=== PATIENT | male | born 1960 | race Caucasian/White ===

== ENCOUNTER 2017-01-18 05:49 | Day surgery (SDC) | payer BC ==
[2017-01-18] MEDS ORDERED: DIPRIVAN 200 MG/20 ML IV ONE (05:50)
[2017-01-18] MEDS ORDERED: Ketamine HCl 50 MG/ML IJ ONE (05:50)
[2017-01-18] MEDS ORDERED: Lactated Ringers 1,000 ML IV SCH (06:00)
[2017-01-18] MEDS ORDERED: Lactated Ringers 1,000 ML IV ONE ×2 (06:20→07:50)
[2017-01-18 08:50] VITALS: O2SAT 97
--- NOTE | 2017-01-18 10:13 | OP ---
SURGERY DATE/TIME: 01/18/2017719 PREOPERATIVE DIAGNOSIS: Screening colonoscopy. POSTOPERATIVE DIAGNOSIS: Diverticulosis. PROCEDURE: Screening colonoscopy. SURGEON: Thanh Abdi M.D. ANESTHESIA: MAC by Niraj Augustin CRNA. ESTIMATED BLOOD LOSS: None. SPECIMENS: None. DESCRIPTION OF PROCEDURE: After informed written consent was obtained, the patient was taken to the endoscopy suite. He underwent monitored anesthesia and a digital rectal exam showed normal sphincter tone and no internal lesions. The scope was inserted into the rectum and sequentially the entire colonic mucosa was traversed. The level of cecum was reached and verified with direct visualization of ileocecal valve. Upon withdrawal careful mucosal inspection revealed no obvious abnormalities other than diverticulosis scattered throughout the length of the colon. There was some semi-solid stool present throughout several areas but there were no gross mucosal abnormalities. Prior to withdrawal retroflexion showed no internal lesions. The scope was removed and the patient was transferred to the recovery room in excellent condition.
[2017-01-18 11:37] VITALS: BP 151/95; PULSE 61
== END 2017-01-18 09:20 | disposition home or self-care (01) ==
LOC: SDC 05:49
PROVIDERS: ATTEND Family Medicine
PROC: 0DJD8ZZ Inspection of Lower Intestinal Tract, Via Natural or Artificial Opening Endoscopic (ICD-10-PCS; principal; 2017-01-18)
DX: Z12.11 Encounter for screening for malignant neoplasm of colon (principal); K57.90 Diverticulosis of intestine, part unspecified, without perforation or abscess without bleeding
CPT/HCPCS: 00810; J2704